=== PATIENT | male | born 1960 | race Caucasian/White ===

== ENCOUNTER 2022-07-22 05:37 | Emergency (ER) | payer MEDICAID ==
[2022-07-22] MEDS ORDERED: Sodium Chloride 0.9% 10 ML Syringe FLUSH PRN (06:08)
[2022-07-22] MEDS ORDERED: Aspirin 325 MG Tab.EC PO ONE (06:10)
[2022-07-22] MEDS ORDERED: Nitroglycerin 0.4 MG Tab.SL SL ONE (06:11)
[2022-07-22] MEDS ORDERED: Heparin Sodium/0.45% NaCl 25,000 UNITS/500 ML BAG IV SCH (06:15)
[2022-07-22] MEDS ORDERED: Heparin Sodium 5,000 Units/ML Vial IVPUSH ONE ×2 (06:22→06:32)
[2022-07-22] MEDS ORDERED: fentaNYL 100 MCG/2 ML SDV IVPUSH PRN (06:23)
[2022-07-22] MEDS ORDERED: Ticagrelor 90 MG Tab PO ONE (06:23)
[2022-07-22] MEDS ORDERED: fentaNYL 100 MCG/2 ML SDV ONE (06:24)
[2022-07-22 06:31] LABS: ESTIMATED GFR 43 mL/min (>60)
[2022-07-22] MEDS ORDERED: Aspirin 81 MG Tab.Chew PO ONE (06:32)
[2022-07-22] MEDS ORDERED: Sodium Chloride 0.9% 1,000 ML IV ONE (06:33)
== END 2022-07-22 06:45 ==
LOC: FB.ED 05:37
DX: I21.3 ST elevation (STEMI) myocardial infarction of unspecified site (principal)
CPT/HCPCS: 36415; 80053; 84484; 85025; 85610; 85730; 93005; 96361; 96365; 96375; 99285; A9270; J1644; J3010; J7030

== ENCOUNTER 2025-06-11 18:53 | Emergency (ER) | payer MEDICAID ==
[2025-06-11 19:35] LABS: BASOPHILS ABSOLUTE AUTO 0.0 x10-3/uL (0.0-0.3); BASOPHILS PERCENT AUTO 0.6 % (0.3-3.8); EOSINOPHILS ABSOLUTE AUTO 0.1 x10-3/uL (0.0-0.6); EOSINOPHILS PERCENT AUTO 1.9 % (0.1-6.8); LYMPHOCYTES ABSOLUTE AUTO 1.8 x10-3/uL (0.5-4.5); LYMPHOCYTES PERCENT AUTO 34.1 % (15.8-45.3); MEAN PLATELET VOLUME 9.0 fL (6.7-11.0); MONOCYTES ABSOLUTE AUTO 0.5 x10-3/uL (0.0-1.2); MONOCYTES PERCENT AUTO 9.4 % (5.5-15.2); NEUTROPHILS ABSOLUTE AUTO 2.9 x10-3/uL (1.7-6.9); NEUTROPHILS PERCENT AUTO 54.0 % (40.3-71.8); PLATELET COUNT,PLT 199 x10(3)uL (117-477); RED BLOOD CELL COUNT 5.26 x10(6)uL (3.90-5.90); RED CELL DISTRIBUTION WIDTH 13.5 % (12.4-15.0); WHITE BLOOD CELL COUNT,WBC 5.3 x10-3/uL (3.2-10.1)
[2025-06-11 19:38] LABS: BLOOD UREA NITROGEN,BUN 27 mg/dL (7-18); CARBON DIOXIDE,CO2 28 mmol/L (21-32); CHLORIDE,CL 104 mmol/L (100-110); CREATININE 1.0 mg/dL (0.70-1.30); EST CRCL DRUG DOSING (CG) 75.61 mL/min; ESTIMATED GFR 85 mL/min (>60); GLUCOSE RANDOM 106 mg/dL (80-116); POTASSIUM,K 3.7 mmol/L (3.5-5.3); SODIUM,NA 139 mmol/L (135-145)
[2025-06-11 19:44] LABS: A/G RATIO 1.3; ALANINE AMINOTRANSFERASE,ALT 44 U/L (12-36); ASPARTATE AMNIOTRANSFERASE,AST 23 IU/L (5-25); BILIRUBIN TOTAL 0.5 mg/dL (0.1-1.3); PROTEIN TOTAL,TP 6.6 g/dL (6.0-8.0)
[2025-06-11 19:50] LABS: PRO B-TYPE NATRIUR PEPT,BNPPRO 339.0 pg/mL (<=125)
== END 2025-06-11 20:15 | disposition home or self-care (01) ==
LOC: FB.ED 18:53
DX: K21.9 Gastro-esophageal reflux disease without esophagitis (principal); I10 Essential (primary) hypertension
CPT/HCPCS: 36415; 71045; 80053; 83880; 84484; 85025; 93010; 99283; 99285